=== PATIENT | male | born 1940 | race Caucasian/White ===

== ENCOUNTER 2017-05-10 15:25 | Emergency (ER) | payer OTHER, MEDICAID ==
[~2017-05-10] VITALS: Ht 177.8 cm; Wt 100.0 kg
[2017-05-10 15:30] VITALS: Ht 177.8 cm; Wt 100.0 kg
[2017-05-10] MEDS ORDERED: SOD CHLORIDE 0.9% 500 ML IV STA (15:51)
[2017-05-10 16:38] LABS: BASOPHILS % 0.5 % (0.0-2.0); EOSINOPHILS # 0.1 10^3/ul (0.0-0.5); EOSINOPHILS % 1.7 % (0.0-7.0); HEMATOCRIT 35.4 % (42.0-52.0); HEMOGLOBIN 11.5 g/dl (14.0-18.0); LYMPHOCYTES # 0.9 10^3/ul (0.8-2.9); LYMPHOCYTES % 16.4 % (15.0-51.0); MEAN CORPUSCULAR HGB CONC 32.5 g/dl (32.0-37.0); MEAN CORPUSCULAR VOLUME 92.4 fl (82.0-101.0); MEAN PLATELET VOLUME 10.7 fl (7.4-10.4); MONOCYTE # 0.7 10^3/ul (0.3-0.9); MONOCYTES % 11.9 % (0.0-11.0); NEUTROPHILS % 69.3 % (39.0-77.0); PLATELET COUNT 172 10^3/UL (140-415); RED BLOOD COUNT 3.83 10^6/ul (4.70-6.10); RED CELL DISTRIBUTION WIDTH 13.7 % (11.5-14.5); WHITE BLOOD COUNT 5.7 10^3/ul (4.8-10.8)
[2017-05-10 17:00] LABS: ALANINE AMINOTRANSFERASE 25 IU/L (13-69); ALBUMIN 4.1 g/dl (3.3-4.9); ALBUMIN/GLOBULIN RATIO 1.41; ALKALINE PHOSPHATASE 69 IU/L (42-121); ANION GAP 14 (8-16); ASPARTATE AMINO TRANSFERASE 33 IU/L (15-46); BILIRUBIN,INDIRECT 0.8 mg/dl (0-1.1); BILIRUBIN,TOTAL 0.8 mg/dl (0.2-1.3); BLOOD UREA NITROGEN 23 mg/dl (7-20); CALCIUM 9.2 mg/dl (8.4-10.2); CARBON DIOXIDE 28 mmol/L (21-31); CHLORIDE 104 mmol/L (97-110); CREATININE 1.19 mg/dl (0.61-1.24); GLUCOSE 119 mg/dl (70-220); POTASSIUM 3.6 mmol/L (3.5-5.1); SODIUM 142 mmol/L (135-144)
--- NOTE | 2017-05-10 17:27 | RADRPT ---
PROCEDURE: CT Brain without contrast. CLINICAL INDICATION: Altered mental status TECHNIQUE: A CT of the brain was performed on a multidetector CT scanner utilizing axial sections from the skull base through the vertex without contrast. Images were reviewed on a high-resolution [employer] workstation. Exam CTDI = 44.26 mGy and the DLP = 720.23 mGy-cm. One or more of the following dose reduction techniques were used: Automated exposure control Adjustment of the mA and/or kV according to patient size. Use of iterative reconstruction technique. COMPARISON: None available FINDINGS: Moderate diffuse cerebral and cerebellar atrophy is present. There is proportionate dilatation of t he ventricular system and sulci in a symmetric fashion. There is prominence of the extraaxial spaces secondary to atrophy. There is no evidence of intracranial hemorrhage, mass effect or midline shift . There is an area of chronic infarct in the left inferior cerebellar hemisphere. No abnormal intra- axial or extra-axial fluid collections are seen. The density of the brain is normal and the tamez/wh ite matter differentiation is well preserved. Moderate patchy diffuse deep white matter microangiop athic ischemic change is seen. The osseous structures are unremarkable. Paranasal sinuses are cl ear. Vascular calcifications are identified. IMPRESSION: 1. No intracranial hemorrhage, mass effect or midline shift. 2. Moderate generalized atrophy. Moderate microangiopathic ischemic change. 3. Left cerebellar chronic infarct. 4. Intracranial atherosclerosis. RPTAT: BB .Vincenzo Wilkins MD, Date Time Electronically viewed and signed by .Vincenzo Wilkins MD, MD on 05/10/2017 17:27 .O/
[2017-05-10 17:31] LABS: TROPONIN-I < 0.012 ng/ml (0.00-0.12)
[2017-05-10 18:54] LABS: ADD UMIC NO; UR ASCORBIC ACID NEGATIVE (NEGATIVE); UR BILIRUBIN (Dip) NEGATIVE (NEGATIVE); UR BLOOD (Dip) NEGATIVE (NEGATIVE); UR CLARITY CLEAR (CLEAR); UR COLOR AMBER (YELLOW); UR GLUCOSE (Dip) NEGATIVE (NEGATIVE); UR KETONES (Dip) TRACE mg/dL (NEGATIVE); UR LEUKOCYTE ESTERASE (Dip) NEGATIVE Leu/ul (NEGATIVE); UR NITRITE (Dip) NEGATIVE (NEGATIVE); UR TOTAL PROTEIN (Dip) NEGATIVE (NEGATIVE); UR UROBILINOGEN (Dip) 2+ mg/dL (NEGATIVE)
[2017-05-10] MEDS ORDERED: SOD CHLORIDE 0.9% 500 ML IV ONE (19:00)
[2017-05-10] MEDS ORDERED: HALOPERIDOL 5 MG INJ ONE (19:11)
[2017-05-10] MEDS ORDERED: HALOPERIDOL 5 MG INJ IM ONE (19:30)
--- NOTE | 2017-05-10 19:47 | ERD ---
ER Documentation Chief Complaint Date/Time DATE: 05/10/17 TIME: 19:37 Chief Complaint pt bib RA and [employer] from dementia home with c/o danger to others HPI 76-year-old male was sent in for [facility] assisted living [facility] for having dementia. There is stated they did not they could handle him with his level of dementia and aggression. Patient himself says that he feels well and denies chest pain, fever, chills, any pain whatsoever denies recent trauma. Does have evidence of dementia and may be somewhat unreliable. ROS All systems reviewed and are negative except as per history of present illness although patient may be slightly unreliable because of his dementia.. PMhx/Soc Medical and Surgical Hx: Unable to obtain Hx Alcohol Use: No (UTD) Hx Substance Use: No (UTD) Hx Tobacco Use: No (UTD) Smoking Status: Unknown if ever smoked Physical Exam Vitals Vital Signs Date Time Temp Pulse Resp B/P Pulse Ox O2 Delivery O2 Flow Rate FiO2 05/10/17 18:22 98.6 76 16 138/74 98 05/10/17 15:30 98.6 88 16 140/80 98 Physical Exam Const: [] No distress Head: Atraumatic Eyes: Normal Conjunctiva EOMI, PERRL ENT: Normal External Ears, Nose and Mouth. Neck: Full range of motion..~ No meningismus. No JVD Resp: Clear to auscultation bilaterally Cardio: Regular rate and rhythm, no murmurs Abd: Soft, non tender, non distended. Normal bowel sounds Skin: No petechiae or rashes Back: No midline or flank tenderness Ext: No cyanosis, or edema, no signs of trauma, distal pulses intact all 4 extremities Neur: Awake and alert and oriented 2, not oriented to the date or the year but does know the month, cranial nerves II through XII intact, no cerebellar deficits, normal gait Psych: Normal Mood and Affect Result Diagram: 05/10/17 1622 05/10/17 1622 Results 24 hrs Laboratory Tests Test 05/10/17 16:22 05/10/17 18:00 White Blood Count 5.710^3/ul Red Blood Count 3.8310^6/ul Hemoglobin 11.5g/dl Hematocrit 35.4% Mean Corpuscular Volume 92.4fl Mean Corpuscular Hemoglobin 30.0pg Mean Corpuscular Hemoglobin Concent 32.5g/dl Red Cell Distribution Width 13.7% Platelet Count 79140^3/UL Mean Platelet Volume 10.7fl Neutrophils % 69.3% Lymphocytes % 16.4% Monocytes % 11.9% Eosinophils % 1.7% Basophils % 0.5% Nucleated Red Blood Cells % 0.0/100WBC Neutrophils # 4.010^3/ul Lymphocytes # 0.910^3/ul Monocytes # 0.710^3/ul Eosinophils # 0.110^3/ul Basophils # 0.010^3/ul Nucleated Red Blood Cells # 0.010^3/ul Sodium Level 142mmol/L Potassium Level 3.6mmol/L Chloride Level 104mmol/L Carbon Dioxide Level 28mmol/L Anion Gap 14 Blood Urea Nitrogen 23mg/dl Creatinine 1.19mg/dl Glucose Level 119mg/dl Lactic Acid Level 2.3mmol/L Calcium Level 9.2mg/dl Total Bilirubin 0.8mg/dl Direct Bilirubin 0.00mg/dl Indirect Bilirubin 0.8mg/dl Aspartate Amino Transf (AST/SGOT) 33IU/L Alanine Aminotransferase (ALT/SGPT) 25IU/L Alkaline Phosphatase 69IU/L Troponin I < 0.012ng/ml Total Protein 7.0g/dl Albumin 4.1g/dl Globulin 2.90g/dl Albumin/Globulin Ratio 1.41 Thyroid Stimulating Hormone (TSH) 1.720MIU/L Urine Color RIVKA Urine Clarity CLEAR Urine pH 5.0 Urine Specific Hibbs 1.020 Urine Ketones TRACEmg/dL Urine Nitrite NEGATIVEmg/dL Urine Bilirubin NEGATIVEmg/dL Urine Urobilinogen 2+mg/dL Urine Leukocyte Esterase NEGATIVELeu/ul Urine Hemoglobin NEGATIVEmg/dL Urine Glucose NEGATIVEmg/dL Urine Total Protein NEGATIVEmg/dl Current Medications Medications (Trade) Dose Ordered Sig/Zenia Route PRN Reason Start Time Stop Time Status Last Admin Dose Admin Sodium Chloride 500 ml @ 500 mls/hr Q1H STAT IV 05/10/17 15:51 05/10/17 16:50 DC 05/10/17 15:51 Sodium Chloride (NS) 500 ml @ 500 mls/hr Q1H ONCE IV 05/10/17 19:00 05/10/17 19:59 UNV Haloperidol (Haldol) 5 mg ONCE ONCE IM 05/10/17 19:30 05/10/17 19:31 DC 05/10/17 19:25 Haloperidol (Haldol) 5 mg STK-MED ONCE .ROUTE 05/10/17 19:11 05/10/17 19:12 DC Procedures/MDM Elderly male with known dementia sent to the ER for evaluation of his dementia. Mild dehydration reversible causes of dementia were searched for including thyroid abnormalities, normal pressure hydrocephalus, urinary tract infection. Full workup was performed including cardiac abnormal and is as well. Patient has no signs of infection, cardiac ischemia, larger than expected ventricles, no thyroid or electrolyte abnormalities except for mild lactic acid elevation significant during his mild dehydration. He was hydrated liter normal saline. He remained very calm and pleasant in the emergency room. Began to the son down around 7:00 and was given IM Haldol as during 1 of his calm walks around the emergency room he did go into patient's room and try to interact with them more than one occasion. No acute abnormalities we attempted to call the facility to transport him back in the said they would refuse to accept it. Explained them that they needed to find placement if they were not able to care for the patient. They said they understood and are attempting to find placement currently. Patient will be staying in the emergency room until that time. This is still vital signs throughout his stay and is currently calm after the Haldol. EKG interpretation: Normal sinus rhythm rate of 73, normal axis, normal intervals, ST or T-wave changes concerning for acute ischemia. Normal EKG. CT head interpretation: I see no acute process, I see no hemorrhage, no mass- effect or midline shift, no skull fracture no abnormal masses. Generalized atrophy as expected for age. Departure Diagnosis: Primary Impression: Mild dehydration Additional Impression: Dementia Condition: Stable EDI SEWELL DO May 10, 2017 19:47
[2017-05-10 22:19] VITALS: BP 142/79; PULSE 85; RESP 16; TEMP 97.9
== END 2017-05-10 22:19 | disposition home or self-care (01) ==
LOC: E/R 15:25
DX: E86.0 Dehydration (principal); R41.82 Altered mental status, unspecified
CPT/HCPCS: 36415; 70450; 80053; 81003; 83605; 84443; 84484; 85025; 96372; 99285; J1630; J7040; 93005